=== PATIENT | female | born 1990 | race African-American/Black ===

== ENCOUNTER 2016-10-07 12:23 | Emergency (ER) | payer OTHER ==
[2016-10-07 12:35] VITALS: BP 140/73; PULSE 88; TEMP 98; BMI 43.9
--- NOTE | 2016-10-07 13:34 | PDOC ---
History of Present Illness - General Chief Complaint: Pain Stated Complaint: LT HIP PAIN Time Seen by Provider: 10/07/16 12:42 History Source: Patient Exam Limitations: No Limitations - History of Present Illness Initial Comments: 10/07/16 13:24 CHIEF COMPLAINT: Left hip pain. HISTORY OF PRESENT ILLNESS: Patient is a 26 -year-old female No significant medical history. Presents to the ER with reproducible pain to the left hip. Was playing basketball 5 days and and was "elbowed" in the left hip. Pain is reproduced with movement. No pain on palpation of area. No visible injury. " Patient states that pain "is deep inside" . No erythema, edema or bruising noted to area. PMH: None MEDS:None ALLERGIES: None REVIEW OF SYSTEMS: GENERAL/CONSTITUTIONAL: Awake alert and oriented HEAD, EYES, EARS, NOSE AND THROAT: No change in vision. No facial edema, no bruising. NO active bleeding. Nares intact. RESPIRATORY: No cough, wheezing, or hemoptysis. CARDIAC: Denies chest pain, no shortness of breathe. MUSCULOSKELETAL: No spinal point tenderness, Good ROM to all four extremities. NO CVA tenderness. Pain to the left anterior hip only with hip flexion. GI/: Denies abdominal pain, no nausea or vomiting, no bloody stool, no Hematuria. SKIN : No erythema or bruising noted. No abrasion or lacerations. NEUROLOGIC: No loss of consciousness, no numbness or tingling. PHYSICAL EXAM: GENERAL: Awake and alert and oriented x3. EYES: The pupils are equal, round, and reactive to light, with clear, conjunctiva. Good extraocular movement. No nystagmus NOSE: No nasal trauma . Midface stable MOUTH: Teeth intact. EARS: The ear canals and tympanic membranes are normal without trauma. No drainage. NECK: No Lower cervical C-spine tenderness, no pain with chin to chest. CHEST: The lungs are clear without crackles, or wheezes. No subcutaneous emphysema. No crepitus. HEART: Heart is regular rhythm, with normal S1 and S2, no murmurs. ABDOMEN: The abdomen is soft and nontender with normal bowel sounds. There is no guarding or rebound. MUSCULOSKELETAL: No spinal point tenderness. No bruising or erythema. Pelvis stable. Pain to the left hip with flexion, no pain with abduction or adduction. EXTREMITIES: Extremities are normal. No visible traumatic injury. SKIN: Without edema, erythema or bruising. No abrasions or lacerations. 10/07/16 14:28 10/07/16 14:31 Past History - Past Medical History Allergies/Adverse Reactions: Allergies Allergy/AdvReac Type Severity Reaction Status Date / Time shellfish derived Allergy Verified 10/07/16 12:35 Home Medications: Ambulatory Orders Ibuprofen [Motrin -] 600 mg PO QID #28 tablet 10/07/16 Asthma: Yes - Psycho/Social/Smoking Cessation Hx Anxiety: No Suicidal Ideation: No Smoking History: Never smoked Have you smoked in the past 12 months: No Number of Cigarettes Smoked Daily: 0 Hx Alcohol Use: Yes (SOCIAL) Drug/Substance Use Hx: No Substance Use Type: None *Physical Exam - Vital Signs Last Vital Signs Temp Pulse Resp BP Pulse Ox 98.0 F 88 20 140/73 99 10/07/16 12:31 10/07/16 12:31 10/07/16 12:31 10/07/16 12:31 10/07/16 12:31 Medical Decision Making - Medical Decision Making 10/07/16 13:34 A/P : Patient with pain to the left anterior hip only with flexion. Injured the area 5 days ago, with no visible injury. Urine sent Xray left hip and pelvis. No pain to the area with palpation. 10/07/16 14:02 Toradol 60 mg IM x 1 ordered. 10/07/16 14:28 X-rays negative for acute fracture dislocation, will DC patient home. Anti- inflammatories, follow-up with orthopedics pain persists in one week. Some relief after Toradol. I discussed the physical exam findings, ancillary test results and final diagnoses with the patient. I answered all of the patient's questions. The patient was satisfied with the care received and felt comfortable with the discharge plan and treatment plan. The patient will call to arrange follow-up and will return to the Emergency Department with any new, persistent or worsening symptoms. 10/07/16 14:31 *DC/Admit/Observation/Transfer Diagnosis at time of Disposition: Hip pain Qualifiers: Laterality: left Qualified Code(s): M25.552 - Pain in left hip Injury of hip Qualifiers: Encounter type: initial encounter Laterality: left Qualified Code(s): S79.912A - Unspecified injury of left hip, initial encounter - Discharge Dispostion Disposition: HOME Condition at time of disposition: Good Admit: No - Prescriptions Prescriptions: Ibuprofen [Motrin -] 600 mg PO QID #28 tablet - Referrals Referrals: Isaac Valadez [Primary Care Provider] - - Patient Instructions Additional Instructions: Please monitor area for any redness, swelling, bruising, or increased pain. Recommend follow-up with orthopedics in one week if pain persists
[2016-10-07] MEDS ORDERED: KETOROLAC TROMETHAMINE 60 MG/2 ML VIAL IM ONE (13:56)
[2016-10-07] MEDS ORDERED: KETOROLAC TROMETHAMINE 60 MG/2 ML VIAL ONE (14:04)
== END 2016-10-07 14:36 | disposition home or self-care (01) ==
LOC: JERFT 12:23
PROC: 3E0233Z Introduction of Anti-inflammatory into Muscle, Percutaneous Approach (ICD-10-PCS; principal; 2016-10-07)
DX: S79.812A Other specified injuries of left hip, initial encounter (principal); W51.XXXA Accidental striking against or bumped into by another person, initial encounter; Y93.67 Activity, basketball; Y92.310 Basketball court as the place of occurrence of the external cause; Y99.8 Other external cause status
CPT/HCPCS: 73523-TC; 84703; 99281-25

== ENCOUNTER 2019-01-22 22:23 | Emergency (ER) | payer SELFPAY ==
[2019-01-22 22:28] VITALS: BP 119/71; PULSE 72; TEMP 97.6; BMI 38.7
--- NOTE | 2019-01-22 22:56 | PDOC ---
History of Present Illness - General Chief Complaint: Chest Pain Stated Complaint: CHEST PAIN Time Seen by Provider: 01/22/19 22:56 History Source: Patient Exam Limitations: No Limitations - History of Present Illness Initial Comments: 01/22/19 22:56 Sara Dempsey is a 28yF w PMHx obesity, asthma presenting w chest pain and L sided numbness. Sudden onset L sided sharp chest pain while putting on clothes at 8p. Pain worse w sitting up. Onset of L forearm numbness from 4th, 5th digits radiating to elbow at 9p. Associated nausea. Did not take any meds. Denies fever, headache, vomiting, cough, AB pain, urinary/bowel movement changes. Past History - Past Medical History Allergies/Adverse Reactions: Allergies Allergy/AdvReac Type Severity Reaction Status Date / Time shellfish derived Allergy Verified 01/22/19 22:25 Home Medications: Ambulatory Orders Ibuprofen [Motrin -] 600 mg PO QID #28 tablet 10/07/16 Asthma: Yes COPD: No - Psycho Social/Smoking Cessation Hx Smoking History: Never smoked Have you smoked in the past 12 months: No Number of Cigarettes Smoked Daily: 0 Hx Alcohol Use: Yes (SOCIAL) Drug/Substance Use Hx: No Substance Use Type: None Review of Systems - Review of Systems Constitutional: No: Chills, Fever HEENTM: No: Eye Pain, Nose Pain, Throat Pain, Mouth Pain Respiratory: No: Cough, Shortness of Breath Cardiac (ROS): Yes: Chest Pain. No: Palpitations, Syncope ABD/GI: Yes: Nausea. No: Abdominal Distended, Constipated, Diarrhea, Vomiting : No: Burning, Dysuria, Discharge, Flank Pain, Hematuria Musculoskeletal: No: Back Pain, Joint Pain, Muscle Pain, Muscle Weakness Integumentary: No: Bruising, Flushing, Lesions Neurological: Yes: Numbness (L arm). No: Headache, Seizure, Tingling, Tremors Psychiatric: No: Anxiety, Depression, Stressors Endocrine: No: Excessive Sweating, Flushing, Intolerance to Cold, Intolerance to Heat Hematologic/Lymphatic: No: Anemia, Blood Clots *Physical Exam - Vital Signs Last Vital Signs Temp Pulse Resp BP Pulse Ox 97.6 F 72 18 119/71 98 01/22/19 22:25 01/22/19 22:25 01/22/19 22:25 01/22/19 22:25 01/22/19 22:25 - Physical Exam General Appearance: Yes: Nourished, Appropriately Dressed, Mild Distress HEENT: positive: EOMI, ALAYNA, Normal Voice, Hearing Grossly Normal. negative: Scleral Icterus (R), Scleral Icterus (L), Nasal Congestion, Rhinorrhea Respiratory/Chest: positive: Chest Tender (L chest), Lungs Clear, Normal Breath Sounds. negative: Respiratory Distress, Crackles, Rales, Rhonchi, Stridor, Wheezing Cardiovascular: positive: Regular Rhythm, Regular Rate, S1, S2. negative: Edema , Murmur Extremity: positive: Normal Capillary Refill. negative: Swelling Integumentary: positive: Normal Color. negative: Diaphoresis Neurologic: positive: grade tamper II-XII NML intact, Fully Oriented, Alert, Motor Strength 5/5, Responsive, Numbness (reduced sensation L dorsal 4th, 5th digits to wrist), Other (3+ radial pulses terrie.). negative: Confused, Disoriented Heart Score/ECG Review - History History: Slightly suspicious - Electrocardiogram EKG: Normal - Age Age: </= 45 - Risk Factors Risk Factors Heart Score: No Hx Hypercholesterolemia, No Hx Hypertension, No Hx Diabetes, No Smoking History, Yes Positive family hx of cardiac disease ( grandmother [place] 50s), Yes Hx Obesity Based on the list above the patient has:: 1-2 risk factors - Troponin Troponin: </= normal limit - Score Heart Score - Total: 1 ED Treatment Course - LABORATORY CBC & Chemistry Diagram: 01/23/19 00:00 01/23/19 00:00 - ADDITIONAL ORDERS Additional order review: Laboratory Results 01/23/19 01/23/19 01/23/19 00:00 00:00 00:00 Sodium 141 Potassium 4.1 Chloride 109 H Carbon Dioxide 25 Anion Gap 7 L BUN 19.1 H Creatinine 0.8 Est GFR (CKD-EPI)AfAm 117.10 Est GFR (CKD-EPI)NonAf 101.04 Random Glucose 98 Calcium 8.7 Total Bilirubin 0.2 AST 17 ALT 22 Alkaline Phosphatase 52 Creatine Kinase 140 Troponin I < 0.02 Total Protein 6.4 Albumin 3.4 Serum , Qual Negative 01/23/19 00:00 RBC 4.05 MCV 87.1 MCHC 33.7 RDW 13.3 MPV 8.4 Neutrophils % 50.9 Lymphocytes % 38.8 Monocytes % 6.0 Eosinophils % 3.6 Basophils % 0.7 - RADIOLOGY Radiology Studies Ordered: Category Date Time Status CHEST X-RAY PORTABLE* [RAD] Stat Radiology 01/23/19 00:12 Taken - Medications Given in the ED: ED Medications Discontinued Medications Generic Name Dose Route Start Last Admin Trade Name Nathanael PRN Reason Stop Dose Admin Aspirin 325 mg 01/22/19 23:11 01/23/19 00:16 Ecotrin - PO 01/22/19 23:12 325 mg ONCE ONE Administration Ondansetron HCl 4 mg 01/22/19 23:19 01/23/19 00:20 Zofran Injection IVPUSH 01/22/19 23:20 4 mg NOW ONE Administration Medical Decision Making - Medical Decision Making 01/22/19 23:18 CBC CMP trop HCG EKG CXR EKG shows NSR, HR 70, QTc 429, no ST changes 324 aspirin, tylenol for chest pain, zofran for nausea CXR shows small terrie basilar effusions --- Sara Dempsey is a 28yF w PMHx obesity, asthma presenting w chest pain and L arm numbness. Chest pain d/t costochondritis (chest tenderness) . Not , no evidence of ACS (neg trop, NSR EKG), no evidence of PNA on CXR. Low concern for stroke w atypical numbness in L dorsal hand. Given aspirin, tylenol for chest pain, zofran for nausea. Signed out to night team. - 2nd trop at 230am - dc home if neg Discharge - Discharge Information Problems reviewed: Yes Clinical Impression/Diagnosis: Costochondritis Condition: Good Disposition: HOME - Admission No - Follow up/Referral - Patient Discharge Instructions Patient Printed Discharge Instructions: DI for Atypical Chest Pain Additional Instructions: You were seen for chest pain. Your labs and imaging do not show anything concerning. You were given medication for your pain. Please follow up with your primary care doctor regarding your visit. You can take 600mg ibuprofen 3x every day for the next 5 days if you continue to have pain Come back to the ED if you have worsening numbness, worsening chest pain, or trouble breathing. - Post Discharge Activity
--- NOTE | 2019-01-22 22:57 | PDOC ---
Attending Attestation - Resident Resident Name: Rebecca Solorzano - ED Attending Attestation I have performed the following: I have examined & evaluated the patient, The case was reviewed & discussed with the resident, I agree w/resident's findings & plan, Exceptions are as noted - HPI HPI: 01/23/19 01:34 28-year-old female presents with nonradiating chest pain that started this evening - Physicial Exam PE: 01/23/19 01:34 Well-nourished well-developed 28-year-old female presents with complaint of chest pain Has normocephalic atraumatic Neck no JVD no bruits Lungs are clear to auscultation bilaterally CVS regular rate and rhythm S1-S2 Abdomen nontender Skin warm and dry Neuro alert and oriented x3, ambulatory - Medical Decision Making 01/23/19 01:35 EKG was normal sinus rhythm with no ST elevations or depression Patient was given aspirin Plan patient will have 2 troponins and if they are both negative she will be discharged home Impression atypical chest pain
[2019-01-22] MEDS ORDERED: ASPIRIN 325 MG ENTERIC COATED TABLET (FP) PO ONE (23:11)
[2019-01-22] MEDS ORDERED: ONDANSETRON 4 MG/2 ML VIAL IVPUSH ONE (23:19)
[2019-01-22] MEDS ORDERED: ASPIRIN 325 MG ENTERIC COATED TABLET (FP) ONE (23:54)
[2019-01-23] MEDS ORDERED: ONDANSETRON 4 MG/2 ML VIAL ONE (00:17)
[2019-01-23 00:24] LABS: BASO % 0.7 % (0-2.0); EOS % 3.6 % (0-4.5); HEMATOCRIT 35.2 % (32.4-45.2); HEMOGLOBIN 11.9 GM/dL (10.7-15.3); LYMPH % 38.8 % (8-40); MCH 29.4 pg (25.7-33.7); MCHC 33.7 g/dl (32.0-36.0); MEAN CELL VOLUME 87.1 fl (80-96); MEAN PLT VOLUME 8.4 fl (7.5-11.1); NEUT % 50.9 % (42.8-82.8); PLATELET COUNT 284 K/MM3 (134-434); RBC 4.05 M/mm3 (3.60-5.2); RDW 13.3 % (11.6-15.6); WHITE BLOOD COUNT 8.6 K/mm3 (4.0-10.0)
[2019-01-23 00:51] LABS: ALBUMIN 3.4 g/dl (3.4-5.0); BILIRUBIN,TOTAL 0.2 mg/dL (0.2-1); BLOOD UREA NITROGEN 19.1 mg/dL (7-18); CALCIUM 8.7 mg/dL (8.5-10.1); CREATININE 0.8 mg/dL (0.55-1.3); POTASSIUM 4.1 mmol/L (3.5-5.1); TOT PROT 6.4 g/dl (6.4-8.2)
[2019-01-23] MEDS ORDERED: ACETAMINOPHEN 1000 MG/100 ML VIAL (NON FORMULARY) IVPB ONE (01:33)
[2019-01-23] MEDS ORDERED: ACETAMINOPHEN INJECTION 100 ML IVPB ONE (01:56)
--- NOTE | 2019-01-23 02:10 | PDOC ---
*Physical Exam - Vital Signs Last Vital Signs Temp Pulse Resp BP Pulse Ox 97.6 F 72 18 119/71 98 01/22/19 22:25 01/22/19 22:25 01/22/19 22:25 01/22/19 22:25 01/22/19 22:25 ED Treatment Course - LABORATORY CBC & Chemistry Diagram: 01/23/19 00:00 01/23/19 00:00 - ADDITIONAL ORDERS Additional order review: Laboratory Results 01/23/19 01/23/19 01/23/19 00:00 00:00 00:00 Sodium 141 Potassium 4.1 Chloride 109 H Carbon Dioxide 25 Anion Gap 7 L BUN 19.1 H Creatinine 0.8 Est GFR (CKD-EPI)AfAm 117.10 Est GFR (CKD-EPI)NonAf 101.04 Random Glucose 98 Calcium 8.7 Total Bilirubin 0.2 AST 17 ALT 22 Alkaline Phosphatase 52 Creatine Kinase 140 Troponin I < 0.02 Total Protein 6.4 Albumin 3.4 Serum , Qual Negative 01/23/19 00:00 RBC 4.05 MCV 87.1 MCHC 33.7 RDW 13.3 MPV 8.4 Neutrophils % 50.9 Lymphocytes % 38.8 Monocytes % 6.0 Eosinophils % 3.6 Basophils % 0.7 - Medications Given in the ED: ED Medications Discontinued Medications Generic Name Dose Route Start Last Admin Trade Name Nathanael PRN Reason Stop Dose Admin Acetaminophen 1,000 mg 01/23/19 01:33 01/23/19 02:00 Ofirmev Injection - IVPB 01/23/19 01:34 1,000 mg ONCE ONE Administration Aspirin 325 mg 01/22/19 23:11 01/23/19 00:16 Ecotrin - PO 01/22/19 23:12 325 mg ONCE ONE Administration Ondansetron HCl 4 mg 01/22/19 23:19 01/23/19 00:20 Zofran Injection IVPUSH 01/22/19 23:20 4 mg NOW ONE Administration Medical Decision Making - Medical Decision Making 01/23/19 02:[address] Cohn. Will f/u 2nd trop at 0230, likely dc home afterwards. 01/23/19 03:24 2nd trop negative, will dc. Discharge - Discharge Information Problems reviewed: Yes Clinical Impression/Diagnosis: Costochondritis Condition: Good Disposition: HOME - Follow up/Referral - Patient Discharge Instructions Patient Printed Discharge Instructions: DI for Atypical Chest Pain Additional Instructions: You were seen for chest pain. Your labs and imaging do not show anything concerning. You were given medication for your pain. Please follow up with your primary care doctor regarding your visit. You can take 600mg ibuprofen 3x every day for the next 5 days if you continue to have pain Come back to the ED if you have worsening numbness, worsening chest pain, or trouble breathing. - Post Discharge Activity Work/Back to School Note: Back to Work
--- NOTE | 2019-01-23 12:53 | EKG ---
Test Reason : Blood Pressure : / mmHG Vent. Rate : 070 BPM Atrial Rate : 070 BPM P-R Int : 162 ms QRS Dur : 076 ms QT Int : 398 ms P-R-T Axes : 052 050 040 degrees QTc Int : 429 ms NORMAL SINUS RHYTHM NORMAL ECG NO PREVIOUS ECGS AVAILABLE Confirmed by SHERYL MCGOWAN MD ([id number]) on 01/23/2019 12:52:44 PM Referred By: Confirmed By:SHERYL MCGOWAN MD
== END 2019-01-23 03:32 | disposition home or self-care (01) ==
LOC: JER 22:23
PROC: 3E033GC Introduction of Other Therapeutic Substance into Peripheral Vein, Percutaneous Approach (ICD-10-PCS; principal; 2019-01-22)
PROC: 3E033NZ Introduction of Analgesics, Hypnotics, Sedatives into Peripheral Vein, Percutaneous Approach (ICD-10-PCS; 2019-01-22)
DX: R07.89 Other chest pain (principal); M94.0 Chondrocostal junction syndrome [Tietze]; E66.9 Obesity, unspecified; Z68.38 Body mass index [BMI] 38.0-38.9, adult
CPT/HCPCS: 36415; 71045-TC-FY; 80053; 82550; 84484; 84703; 85025; 93005; 93010; 99283-25; J0131